=== PATIENT | male | born 1975 | race Caucasian/White ===

== ENCOUNTER 2018-11-25 13:13 | Emergency (ER) | payer OTHER ==
[2018-11-25] MEDS: LIDOCAINE 1% (MDV) 20 ML INJ INJ (13:55)
[2018-11-25] MEDS: IBUPROFEN 800 MG TAB PO (13:55)
[2018-11-25] MEDS: DIPHTH/TET/ACEL PERTUSS (ADULT) 0.5 ML VIAL IM* (13:55)
[2018-11-25] MEDS: HYDROCODONE/APAP (5/325) TAB PO (16:08)
== END 2018-11-25 17:49 ==
LOC: E/R 13:13
DX: S61.210A Laceration without foreign body of right index finger without damage to nail, initial encounter (principal); S52.614A Nondisplaced fracture of right ulna styloid process, initial encounter for closed fracture; R51 Headache; Y04.8XXA Assault by other bodily force, initial encounter; Y92.9 Unspecified place or not applicable
CPT/HCPCS: 12001; 70450; 72125; 72128; 72131; 73090-RT; 73110-RT; 90471; 90715; 99284-25